=== PATIENT | male | born 1955 | race Caucasian/White ===

== ENCOUNTER 2017-12-09 11:28 | Day surgery (SDC) | payer OTHER, SELFPAY ==
--- NOTE | 2017-12-02 09:07 | EKG12_ITS ---
Test Reason : PRE OP Blood Pressure : / mmHG Vent. Rate : 081 BPM Atrial Rate : 081 BPM P-R Int : 166 ms QRS Dur : 086 ms QT Int : 358 ms P-R-T Axes : 064 047 056 degrees QTc Int : 415 ms Sinus rhythm with Premature atrial complexes Otherwise normal ECG Confirmed by ARELIS STEARNS, SCOTT ([id number]), writer editor FILI BROWN ([id number]) on 12/03/2017 2:41:39 PM Referred By: Benito Rojas Confirmed By:SCOTT INFANTE MD
[2017-12-02 09:56] LABS: Anion Gap 6 (5-15); BUN 16 mg/dL (7-18); BUN/Creat Ratio 17.6 RATIO (10-20); Calcium,Total 8.7 mg/dL (8.5-10.1); Chloride 101 mmol/L (98-107); Creatinine, Serum 0.91 mg/dL (0.70-1.30); EST Glomerular Filtration Rate 89 mL/min (>60); Est Glom Filt Rate - Afr Amer 108 mL/min (>60); Glucose 124 mg/dL (74-106); Potassium 3.5 mmol/L (3.5-5.1); Sodium Level 139 mmol/L (136-145)
[2017-12-09] VITALS (7 sets, daily range): BP systolic 119–168; BP diastolic 67–97; PULSE 67–100; RESP 16; TEMP 36.4–37.2; O2SAT 92–100; BMI 29.4
[2017-12-09] MEDS: Cefazolin 2 GM in 0.9% Normal Saline 100 ML IV (14:50)
--- NOTE | 2017-12-09 16:09 | PCM.DC.HER ---
Discharge Diet: Light diet - advance as tolerated Discharge Activity: Return to Normal Activity, May Not Drive - for 2-3 days or while taking narcotic pain meds., May Shower - with the bandage in place 1-2 days after surgery. Lifting Restrictions: 20 pounds for 4 weeks. Additional Activity Instructions:: Climbing stairs is fine, walking is encouraged. Sitting in bed may be uncomfortable. Sitting up using your lateral muscles (sitting up sideways) is usually more comfortable. Do not drive, work heavy equipment of sign legal documents for 24 hours. If your hernia repair was an ingunial repair, you may have scrotal swelling, an ice pack and/or athletic support can provide more comfort. Pain medications may cause nausea, you should typically eat light foods as you take your pain medications. Pain medications may also cause constipation. If you have difficulty with this, discuss with your doctor. Call your doctor if your incision/area has: Continuous Slow Oozing, Sudden Increased Bleeding, Increased Pain/ Swelling, Increased Redness, Foul Smelling Discharge Call your doctor if you observe: Fever of 101 or Higher Suture Line Care: Avoid Pulling/Pushing, Avoid Pinching/Bending Change Dressing in (Days):: 3 - Leave steri-strips for 1 week. May protect with a guaze bandaid. Cleanse incision/area with: Keep Dressing Clean & Dry Allergies/Adverse Reactions: Allergies No Known Allergies Allergy (Verified 12/01/17 10:39) Medications to take at Discharge atorvastatin 40 mg tablet 40 mg PO QHS 09/27/17 aspirin 81 mg tablet,delayed release 81 mg PO QDAY 10/08/17 multivitamin tablet 1 tab PO QAM 10/08/17 cholecalciferol (vitamin D3) 1,000 unit capsule 1,000 unit PO ONCE 11/27/17 hydrochlorothiazide 12.5 mg capsule 12.5 mg PO QAM 11/27/17 Lisinopril [Zestril] 40 mg PO DAILY 12/01/17 Oxycodone HCl/Acetaminophen [Percocet 5/325] 1 - 2 tablet PO Q4H PRN PRN 7 Days #30 tablet 12/09/17 The following prescriptions were given: Oxycodone HCl/Acetaminophen [Percocet 5/325] 1 - 2 tablet PO Q4H PRN PRN 7 Days #30 tablet PRN Reason: Pain Primary Care Physician: Mark Solis MD [Primary Care Provider] - Please Follow Up With: Benito Rojas MD When: call tomorrow to make 2 week follow up appt [phone]
[2017-12-09] MEDS: Bupivacaine 0.25% 30 ML Vial (16:10)
--- NOTE | 2017-12-09 16:11 | PCM.OPRPT ---
Problem List (1) Right inguinal hernia Status: Acute Report of Operation Date of Procedure: 12/09/17 Pre-Operative Diagnosis: Right inguinal hernia Post-Operative Diagnosis: Right inguinal hernia Surgery/Procedure Performed:: Robotic assisted laparoscopic right inguinal hernia repair with mesh Specimen's removed: None Description of Procedure: The patient was brought back to the operating room and general anesthesia was induced. A Chang catheter was placed and clear urine was returned. Next the abdomen was prepped and draped in the usual sterile fashion. An incision was made superior to the umbilicus and a Veress needle was placed into the abdomen. A drop test was performed and was normal. Next the abdomen was insufflated to 15 mmHg. The Veress needle was removed and a camera port was placed into the abdomen. The camera was then placed into the abdomen and the abdomen was inspected for any injuries upon entry. There were none. Next the patient was placed in steep Trendelenburg and the inguinal areas were dressed. There was no hernia on the left side but there was an indirect hernia on the right. Next under direct visualization a right and left 8 mm port was placed in each sidewall. Next the robot was docked and using electrocautery scissors A score was made in the peritoneum. This was dissected down to the hernia sac. The hernia sac was dissected free and reduced into the abdomen. Once there was large enough pocket a pro-chicken and fish butcher mesh was folded and placed into the right inguinal region. This fully covered the defect. Next the peritoneum was reapproximated using a running 3-0V lock suture. The mesh was fully covered by peritoneum at the end of this procedure. Next the robot was undocked and all the ports were removed under direct visualization. The incisions were anesthetized with Marcaine and closed with interrupted 4-0 Monocryl sutures as well as Steri-Strips and bandages. The Chang was taken off the end the case. The patient was taken to PACU in stable condition. Patient tolerated the procedure well. Grafts/Implants Used: Pro-chicken and fish butcher mesh - Admit VTE Documentation VTE Mechan Device Prophylaxis: SCD's
--- NOTE | 2017-12-09 16:14 | OP.PCM_ITS ---
Problem List (1) Right inguinal hernia Status: Acute Report of Operation Date of Procedure: 12/09/17 Pre-Operative Diagnosis: Right inguinal hernia Post-Operative Diagnosis: Right inguinal hernia Surgery/Procedure Performed:: Robotic assisted laparoscopic right inguinal hernia repair with mesh Specimen's removed: None Description of Procedure: The patient was brought back to the operating room and general anesthesia was induced. A Chang catheter was placed and clear urine was returned. Next the abdomen was prepped and draped in the usual sterile fashion. An incision was made superior to the umbilicus and a Veress needle was placed into the abdomen. A drop test was performed and was normal. Next the abdomen was insufflated to 15 mmHg. The Veress needle was removed and a camera port was placed into the abdomen. The camera was then placed into the abdomen and the abdomen was inspected for any injuries upon entry. There were none. Next the patient was placed in steep Trendelenburg and the inguinal areas were dressed. There was no hernia on the left side but there was an indirect hernia on the right. Next under direct visualization a right and left 8 mm port was placed in each sidewall. Next the robot was docked and using electrocautery scissors A score was made in the peritoneum. This was dissected down to the hernia sac. The hernia sac was dissected free and reduced into the abdomen. Once there was large enough pocket a pro-human resource statistician mesh was folded and placed into the right inguinal region. This fully covered the defect. Next the peritoneum was reapproximated using a running 3-0V lock suture. The mesh was fully covered by peritoneum at the end of this procedure. Next the robot was undocked and all the ports were removed under direct visualization. The incisions were anesthetized with Marcaine and closed with interrupted 4-0 Monocryl sutures as well as Steri-Strips and bandages. The Chang was taken off the end the case. The patient was taken to PACU in stable condition. Patient tolerated the procedure well. Grafts/Implants Used: Pro-human resource statistician mesh - Admit VTE Documentation VTE Mechan Device Prophylaxis: SCD's
[2017-12-09] MEDS: oxyCODONE 5 MG Tablet PO (17:37)
--- NOTE | 2017-12-09 18:16 | SUR.PHASEII ---
ASSISTED TO BATHROOM. PT ABLE TO VOID BUT DID BECOME NAUSEATED. ASSISTED BACK TO BED, COVERED WITH WARMED BLANKET AND TURNED OFF LIGHT. PT AND FAMILY INSTRUCTED TO RING FOR NEEDS.
== END 2017-12-09 19:40 | disposition home or self-care (01) ==
LOC: SDC 11:29 → AC 11:29
PROVIDERS: Family Provider Family Medicine; PCP Family Medicine; Visit Provider Surgery
PROC: (CPT 49650; principal; 2017-12-09 12:45)
DX: K40.90 Unilateral inguinal hernia, without obstruction or gangrene, not specified as recurrent (principal); I10 Essential (primary) hypertension; E78.00 Pure hypercholesterolemia, unspecified; Z85.46 Personal history of malignant neoplasm of prostate; Z85.828 Personal history of other malignant neoplasm of skin; Z79.82 Long term (current) use of aspirin
CPT/HCPCS: 49650; 36415; 80048; J7120; J2405

== ENCOUNTER → 2018-05-06 08:22 | Outpatient (CLI) | payer MEDICARE, OTHER, SELFPAY ==
[2018-05-06 09:30] LABS: PSA,Total- Diagnostic 6.78 ng/mL (0.0-4.0)
== END ==
PROVIDERS: Family Provider Family Medicine; PCP Family Medicine; Visit Provider Urology
DX: C61 Malignant neoplasm of prostate (principal)
CPT/HCPCS: 36415; 84153

== ENCOUNTER → 2018-11-10 10:55 | Outpatient (CLI) | payer MEDICARE, OTHER, SELFPAY ==
[2018-11-02 09:51] VITALS: BMI 29.0
[2018-11-10 12:15] LABS: PSA,Total- Diagnostic 7.62 ng/mL (0.0-4.0)
== END ==
PROVIDERS: Family Provider Family Medicine; PCP Family Medicine; Referring Provider Urology; Visit Provider Urology
DX: C61 Malignant neoplasm of prostate (principal)
CPT/HCPCS: 36415; 84153

== ENCOUNTER → 2019-05-10 08:10 | Outpatient (CLI) | payer MEDICARE, OTHER, SELFPAY ==
[2018-11-02 09:51] VITALS: BMI 29.0
[2019-05-10 08:52] LABS: PSA,Total- Diagnostic 6.65 ng/mL (0.0-4.0)
== END ==
PROVIDERS: Family Provider Family Medicine; PCP Family Medicine; Referring Provider Urology; Visit Provider Urology
DX: R97.20 Elevated prostate specific antigen [PSA] (principal); C61 Malignant neoplasm of prostate
CPT/HCPCS: 36415; 84153

== ENCOUNTER 2019-08-29 06:03 | Emergency (ER) | payer MEDICARE, OTHER, SELFPAY ==
[2018-11-02 09:51] VITALS: BMI 29.0
[2019-08-29 06:04] VITALS: BP 165/91; PULSE 73; RESP 14; TEMP 37.1; O2SAT 97; BMI 28.9
--- NOTE | 2019-08-29 06:24 | ED.DCSUM_ITS ---
- ER Visit Summary Date of Service: 08/29/19 Chief Complaint: Hemorrhoid History of Present Illness: The patient is a 64 M with rectal pain that started today. He is concerned for hemorrhoid. He had these in the past and was treated in Dr. Wright office. Physical Examination: Patient has an external hemorrhoid at 3 oclock approximately 2 cm in diameter. This appears to be thrombosed, indurated, tender. No active bleeding. No sign of cellulitis, fissure, fistula, etc. Test Results: None indicated Emergency Department Course and Treatment: Patient was requesting surgical consultation as he wanted to go out of town today. I spoke with Dr. Moeller who said that someone would be available to see him in the office tomorrow. He should call first thing in the morning. He was given the number. Dr. Moeller asked that he does epsom salt soaks. I will also prescribe Colace and reparation H cooling gel. Treatment Plan: As above Disposition: Discharge Impression: 1. External hemorrhoid This note was generated with [employer] dictation software. It may contain incorrect words, spelling, and punctuation that were not noted in review of the chart prior to signing ED Disposition - Plan for ED Patient: Instructions: Hemorrhoids Prescriptions: Docusate Sodium [Colace] 100 mg PO DAILY #20 cap Prescription Printed Phenylephrine HCl/Witch [place] [Preparation H Cooling Gel] 26 gm TP 4X/DAY PRN PRN #20 gel..gram. PRN Reason: Pain/Inflammation Prescription Printed Referrals: Gabe Moeller MD [STAFF PHYSICIAN] -
[2019-08-29 06:39] VITALS: BP 165/91; PULSE 73; RESP 15; O2SAT 97
== END 2019-08-29 06:40 | disposition home or self-care (01) ==
LOC: ED 06:34
PROVIDERS: Emergency Provider Emergency Medicine; Family Provider Family Medicine; PCP Family Medicine
DX: K64.4 Residual hemorrhoidal skin tags (principal); I10 Essential (primary) hypertension
CPT/HCPCS: 99282